=== PATIENT | male | born 1955 | race Caucasian/White ===

== ENCOUNTER 2017-03-17 19:17 | Emergency (ER) | payer BC ==
[~2017-03-17] VITALS: Ht 177.8 cm; Wt 98.4 kg
[~2017-03-17 19:17] MED LIST: ATIVAN1 MG PO; BACTRIM DS 8001 TA1 PO; HYDROCODONE BIT1 T11 PO; LISINOPRIL10 MG PO; MOTRIN800 MG PO; PERCOCET 325 MG1 TA2 PO; PROZAC20 MG PO; RESTORIL30 MG PO
[2017-03-17 19:57] LABS: BASO % 0.4 % (0.0-1.0); EOS # 0.4 10*3/uL (0.0-0.4); HEMATOCRIT 41.1 % (42.0-52.0); HEMOGLOBIN 14.4 g/dl (14.0-18.0); LYMPH # 3.2 10*3/uL (1.3-4.4); LYMPH % 31.4 % (27.0-41.0); MEAN CELL VOLUME 93.2 fl (80.0-94.0); MEAN CORPUSCULAR HGB 32.7 pg (27.0-31.0); MEAN PLATELET VOLUME 9.5 fl (9.6-12.3); MONO # 0.6 10*3/uL (0.1-1.0); NEUT # 5.9 10*3/uL (2.3-7.9); NEUT % 57.8 % (47.0-73.0); PLATELET COUNT AUTOMATED 201 10*3/uL (130-400); RED BLOOD COUNT 4.41 10*6/uL (4.50-5.90); RED CELL DISTRI WIDTH 12.4 % (0-14.5); WHITE BLOOD COUNT 10.2 10*3/uL (4.8-10.8)
[2017-03-17 20:13] LABS: ALBUMIN 4.3 gm/dl (3.1-4.5); ALKALINE PHOSPHATASE 58 U/L (45-117); BUN 15 mg/dl (7-24); CHLORIDE 106 mmol/L (98-107); CREATININE 0.95 mg/dL (0.70-1.30); POTASSIUM 3.8 mmol/L (3.5-5.1); SGOT/AST 23 IU/L (3-35); SGPT/ALT 38 U/L (12-78); SODIUM 140 mmol/L (136-145); TOTAL PROTEIN 7.5 gm/dL (6.4-8.2)
[2017-03-17] MEDS ORDERED: CYCLOBENZAPRINE5 M3 PO (21:49)
== END 2017-03-17 21:49 | disposition home or self-care (01) ==
LOC: ED 19:17
PROVIDERS: Nurse Practitioner Family
DX: S76.912A Strain of unspecified muscles, fascia and tendons at thigh level, left thigh, initial encounter (principal); Z88.8 Allergy status to other drugs, medicaments and biological substances; X50.9XXA Other and unspecified overexertion or strenuous movements or postures, initial encounter; Y93.89 Activity, other specified; Y92.9 Unspecified place or not applicable; Y99.9 Unspecified external cause status

== ENCOUNTER 2018-12-26 21:33 | Inpatient (IN) | payer OTHER ==
[~2018-12-26] VITALS: Ht 177.8 cm; Wt 93.6 kg
--- NOTE | ~2018-12-26 | EKG ---
[place], [place] ELECTROCARDIOGRAM REPORT NAME: JANETH CARABALLO UNIT #: [id number] ROOM: 506 DOCTOR: EPIPHANY DRAFT REPORT BIRTHDATE: [birth year] [facility] Test Date: 2018-12-27 Test Time: 01:18:09 Pat Name: JANETH CARABALLO Department: Room: 506 1 Gender: M Race Board Attendant: : 1955 Requested By: DAMION ABBASI Order Number: [id number] Reading MD: Duyen Kruse MD Measurements Intervals [place] Rate: 62 P: 3 PA: 129 QRS: 15 QRSD: 98 T: 34 QT: 435 QTc: 442 Interpretive Statements Sinus rhythm Electronically Signed On 12-27-2018 14:32:13 PDT by Duyen Kruse MD CM:EKGRPT:ELECTROCARDIOGRAM REPORT [id number] DAIMON ARGUELLO DRAFT REPORT DAMION ABBASI DO
--- NOTE | ~2018-12-26 | EKG ---
[place], [place] ELECTROCARDIOGRAM REPORT NAME: JANETH CARABALLO UNIT #: [id number] ROOM: 506 DOCTOR: CHETNA DRAFT REPORT BIRTHDATE: [birth year] [facility] Test Date: 2018-12-27 Test Time: 02:57:11 Pat Name: JANETH CARABALLO Department: Room: 506 1 Gender: M Retail Team Leader: Heidi Lee : 1955 Requested By: DAMION ABBASI Order Number: [id number] Reading MD: Duyen Kruse MD Measurements Intervals [place] Rate: 58 P: 40 VT: 151 QRS: 30 QRSD: 90 T: 27 QT: 454 QTc: 446 Interpretive Statements Sinus rhythm Atrial premature complex Electronically Signed On 12-27-2018 14:32:31 PDT by Duyen Kruse MD CM:EKGRPT:ELECTROCARDIOGRAM REPORT [id number] DAMION ARGUELLO DRAFT REPORT DAMION ABBASI DO
--- NOTE | ~2018-12-26 | EKG ---
[place], [place] ELECTROCARDIOGRAM REPORT NAME: JANETH CARABALLO UNIT #: [id number] ROOM: 506 DOCTOR: EPIPHNAE DRAFT REPORT BIRTHDATE: [birth year] [facility] Test Date: 2018-12-27 Test Time: 07:09:05 Pat Name: JANETH CARABALLO Department: Room: 506 1 Gender: M Titrator: : 1955 Requested By: DAMION ABBASI Order Number: [id number] Reading MD: Duyen Kruse MD Measurements Intervals [place] Rate: 65 P: 22 SD: 153 QRS: 22 QRSD: 98 T: 24 QT: 437 QTc: 455 Interpretive Statements Sinus rhythm Electronically Signed On 12-27-2018 14:32:43 PDT by Duyen Kruse MD CM:EKGRPT:ELECTROCARDIOGRAM REPORT [id number] DAMION ARGUELLO DRAFT REPORT DAMION ABBASI DO
[~2018-12-26 21:33] MED LIST changes: +CYCLOBENZAPRINE5 M3 PO
[2018-12-26] MEDS ORDERED: ZESTORETIC 10-1 EACH PO (21:37)
[2018-12-26] MEDS ORDERED: ATORVASTATIN CA20 M1 PO (21:37)
[2018-12-26 21:38] VITALS: BP 137/78
[2018-12-26 21:57] LABS: BASO % 0.2 % (0.0-1.0); EOS # 0.3 10*3/uL (0.0-0.4); HEMOGLOBIN 14.6 g/dl (14.0-18.0); LYMPH # 2.6 10*3/uL (1.3-4.4); MEAN CELL VOLUME 98.9 fl (80.0-94.0); MEAN CORPUSCULAR HGB 33.6 pg (27.0-31.0); MEAN PLATELET VOLUME 9.5 fl (9.6-12.3); MONO # 0.7 10*3/uL (0.1-1.0); MONO % 5.4 % (3.0-9.0); NEUT # 9.4 10*3/uL (2.3-7.9); PLATELET COUNT AUTOMATED 233 10*3/uL (130-400); RED BLOOD COUNT 4.35 10*6/uL (4.50-5.90); RED CELL DISTRI WIDTH 12.7 % (0-14.5)
[2018-12-26 22:07] LABS: ACT PARTIAL THROMBO TIME 24.2 SECONDS (20.0-32.1); INTERNATIONAL NORM RATIO 0.9 (2.0-3.5)
[2018-12-26 22:19] LABS: BILIRUBIN NEGATIVE (NEGATIVE); BLOOD NEGATIVE (NEGATIVE); CLARITY CLEAR (CLEAR); COLOR YELLOW (YELLOW); GLUCOSE 3+ (NEGATIVE); KETONE NEGATIVE (NEGATIVE); LEUKO ESTERASE NEGATIVE (NEGATIVE); NITRITE NEGATIVE (NEGATIVE); UROBILINOGEN 0.2 E.U./dl (0.2-1.0)
[2018-12-26 22:20] LABS: BUN 18 mg/dl (7-24); CREATININE 1.08 mg/dL (0.70-1.30)
[2018-12-26 22:21] LABS: ALBUMIN 3.9 gm/dl (3.1-4.5); ALKALINE PHOSPHATASE 61 U/L (45-117); CHLORIDE 102 mmol/L (98-107); LIPASE 107 U/L (73-393); POTASSIUM 3.6 mmol/L (3.5-5.1); SGOT/AST 21 IU/L (3-35); SGPT/ALT 36 U/L (12-78); SODIUM 132 mmol/L (136-145); TOTAL PROTEIN 7.7 gm/dL (6.4-8.2)
[2018-12-26 22:40] LABS: RBC 0-2 rbc/hpf (0-2); WBC 0-2 wbc/hpf (0-5)
--- NOTE | 2018-12-26 23:50 | NUR ---
PATIENT RESTING IN BED, GABRADLEYDING NOTED TO ABDOMEN. PER PATIENT PAIN HURTS WHEN HE TRIES TO MOVE AROUND AND THAT IS WHAT HE WAS JUST DOING. PROVIDED PATIENT WITH URINAL AT THIS TIME. RESPIRATIONS EASY, NON-LABORED ON ROOM AIR. RN WILL CONTINUE TO MONITOR.
[2018-12-27 00:17] VITALS: BP 118/70
[2018-12-27 01:38] VITALS: BP 138/88
--- NOTE | 2018-12-27 01:38 | NUR ---
Time: 137 A 63 year old M admitted to under services of JACOB GARRISON DO. Pt. arrived via wheel chair from ER. Chief complaint: LOWER ABD PAIN, SUDDEN AND STABBING THAT STARTED 12/26 0800. CHRISTAL N/V/Nabeel. ELISSA PEDRO
--- NOTE | 2018-12-27 02:00 | NUR ---
HOME MEDS VERIFIED WITH PATIENT AND UP TO DATE IN MED REC
--- NOTE | 2018-12-27 02:27 | NUR ---
MEDICATED WITH MORPHINE IV PER PRN ORDER FOR COMPLAINTS OF LOWER ABD PAIN RATING AN 8. INFORMED OF NPO STATUS. IV FLUIDS INFUSING PER ORDER. CALL LIGHT WITHIN REACH. WILL MONITOR
--- NOTE | 2018-12-27 04:00 | NUR ---
EARLIER MORPHINE APPEARS EFFECTIVE. RESTING WITH EYES CLOSED. RESPIRATIONS EASY. IV FLUIDS MAINTAINED. CALL LIGHT WITHIN REACH.
[2018-12-27 04:11] LABS: BASO % 0.3 % (0.0-1.0); EOS # 0.2 10*3/uL (0.0-0.4); EOS % 1.4 % (1.0-4.0); HEMATOCRIT 39.2 % (42.0-52.0); HEMOGLOBIN 12.9 g/dl (14.0-18.0); LYMPH # 2.6 10*3/uL (1.3-4.4); LYMPH % 22.6 % (27.0-41.0); MEAN CELL VOLUME 100.5 fl (80.0-94.0); MEAN CORPUSCULAR HGB 33.1 pg (27.0-31.0); MEAN CORPUSCULAR HGB CONC 32.9 g/dl (33.0-37.0); MONO # 0.8 10*3/uL (0.1-1.0); MONO % 7.3 % (3.0-9.0); NEUT # 7.7 10*3/uL (2.3-7.9); PLATELET COUNT AUTOMATED 176 10*3/uL (130-400); RED CELL DISTRI WIDTH 12.8 % (0-14.5); WHITE BLOOD COUNT 11.3 10*3/uL (4.8-10.8)
[2018-12-27 04:24] LABS: ACT PARTIAL THROMBO TIME 26.2 SECONDS (20.0-32.1)
[2018-12-27 04:29] LABS: ALBUMIN 3.2 gm/dl (3.1-4.5); ALKALINE PHOSPHATASE 48 U/L (45-117); BUN 15 mg/dl (7-24); CHLORIDE 109 mmol/L (98-107); CHOLESTEROL 112 mg/dL (<200); HDL CHOLESTEROL 52 mg/dl (40-60); LDL CHOLESTEROL 46 mg/dL (9-159); PHOSPHOROUS 3.1 mg/dL (2.5-4.9); POTASSIUM 3.8 mmol/L (3.5-5.1); SGOT/AST 13 IU/L (3-35); SGPT/ALT 24 U/L (12-78); SODIUM 138 mmol/L (136-145); TOTAL PROTEIN 6.5 gm/dL (6.4-8.2); TRIGLYCERIDES 71 mg/dl (<150); VLDL CHOLESTEROL 14 mg/dL (6-40)
[2018-12-27 04:30] LABS: FREE T4 0.75 ng/dl (0.76-1.46)
[2018-12-27 04:35] LABS: THYROID STIM HORMONE (HS) 0.412 uIU/ml (0.358-4.75)
--- NOTE | 2018-12-27 05:30 | NUR ---
dr melgoza aware home meds up to date
--- NOTE | 2018-12-27 06:24 | NUR ---
MEDICATED WITH MORPHINE IV PER PRN ORDER FOR COMPLAINTS OF LOWER ABD PAIN RATING A 10. IV FLUIDS MAINTAINED. CALL LIGHT WITHIN REACH. NPO STATUS MAINTAINED
--- NOTE | 2018-12-27 06:50 | NUR ---
dr escudero contacted and informed of consult. per dr escudero, already aware of consult
[2018-12-27 06:59] LABS: VITAMIN D, 25-HYDROXY 39.8 ng/mL (30-100)
[2018-12-27 08:00] VITALS: BP 124/76
--- NOTE | 2018-12-27 08:29 | NUR ---
PT RESTING IN BED. NO DISTRESS NOTED. SEE SHIFT ASSESSMENT. WILL MONITOR
--- NOTE | 2018-12-27 10:00 | NUR ---
dr hale in to see pt
[2018-12-27 12:00] VITALS: BP 145/84
--- NOTE | 2018-12-27 12:37 | NUR ---
PT REQUESTED AND GIVEN MORPHINE FOR C/O ABD PAIN PT RATES PAIN 8 WILL MONITOR
--- NOTE | 2018-12-27 13:30 | NUR ---
morphine helped per pt will monitor
[2018-12-27 16:00] VITALS: BP 127/84
--- NOTE | 2018-12-27 17:11 | NUR ---
PT REQUESTED AND GIVEN MORPHINE FOR C/O ABD PAIN. PT RATES PAIN 7/10 WILL MONITOR
--- NOTE | 2018-12-27 18:42 | NUR ---
MS HELPED PER PT WILL MONITOR
--- NOTE | 2018-12-27 19:49 | NUR ---
24 HR chart check completed.
[2018-12-27 20:00] VITALS: BP 144/77
--- NOTE | 2018-12-27 20:00 | NUR ---
RESTING IN BED WATCHING TV. NO DISTRESS NOTED. RESPIRATIONS EASY. LUNGS DIMINISHED, CLEAR. PULSE OX 94% RA. ABD SOFT WITH HYPO BS, CONTINUES TO C/O LOWER ABD PAIN/TENDERNESS. IV FLUIDS INFUSING PER ORDER. CALL LIGHT WITHIN RECAH.
--- NOTE | 2018-12-27 21:43 | NUR ---
MEDICATED WITH MORPHINE IV PER PRN ORDER FOR COMPLAINTS OF LOWER ABD PAIN/TENDERNESS RATING A 6. CALL LIGHT WITHIN REACH. WILL MONITOR FOR EFFECTIVENESS
--- NOTE | 2018-12-27 23:00 | NUR ---
DR MONZON CONTACTED AND INFORMED OF +BC
[2018-12-28] VITALS: BP 142/80; BP 145/88
--- NOTE | 2018-12-28 | NUR ---
AWAKE BUT RESTING WITH EYES CLOSED. RESPIRATIONS EASY. VSS. STATES EARLIER PAIN MEDS, HELPING. IV FLUIDS MAINTAINED. CALL LIGHT WITHIN REACH. NO FURTHER VOICED COMPLAINTS.
--- NOTE | 2018-12-28 04:38 | NUR ---
REQUESTED AND RECEIVED MORPHINE IV PER PRN ORDER FOR COMPLAINTS OF LOWER ABD PAIN RATING A 9. CALL LIGHT WITHIN REACH. WILL MONITOR FOR EFFECTIVENESS
--- NOTE | 2018-12-28 06:00 | NUR ---
EARLIER MEDS APPEAR EFFECTIVE. RESTING WITH EYES CLOSED. RESPIRATIONS EASY. CALL LIGHT WITHIN REACH
[2018-12-28 06:16] LABS: BASO % 0.3 % (0.0-1.0); EOS # 0.2 10*3/uL (0.0-0.4); EOS % 2.3 % (1.0-4.0); HEMATOCRIT 38.5 % (42.0-52.0); HEMOGLOBIN 12.6 g/dl (14.0-18.0); LYMPH # 2.2 10*3/uL (1.3-4.4); LYMPH % 22.9 % (27.0-41.0); MEAN CELL VOLUME 100.8 fl (80.0-94.0); MEAN CORPUSCULAR HGB CONC 32.7 g/dl (33.0-37.0); MEAN PLATELET VOLUME 9.7 fl (9.6-12.3); MONO # 0.5 10*3/uL (0.1-1.0); MONO % 5.3 % (3.0-9.0); NEUT # 6.6 10*3/uL (2.3-7.9); NEUT % 68.8 % (47.0-73.0); PLATELET COUNT AUTOMATED 174 10*3/uL (130-400); RED BLOOD COUNT 3.82 10*6/uL (4.50-5.90); RED CELL DISTRI WIDTH 12.5 % (0-14.5); WHITE BLOOD COUNT 9.6 10*3/uL (4.8-10.8)
[2018-12-28 06:36] LABS: ALBUMIN 3.1 gm/dl (3.1-4.5); ALKALINE PHOSPHATASE 48 U/L (45-117); BUN 11 mg/dl (7-24); CHLORIDE 110 mmol/L (98-107); CREATININE 0.78 mg/dL (0.70-1.30); POTASSIUM 3.7 mmol/L (3.5-5.1); SGOT/AST 11 IU/L (3-35); SGPT/ALT 22 U/L (12-78); SODIUM 138 mmol/L (136-145); TOTAL PROTEIN 6.6 gm/dL (6.4-8.2)
[2018-12-28 07:36] VITALS: BP 142/90
--- NOTE | 2018-12-28 09:30 | NUR ---
DR YEPEZ CALLED AND NOTIFIED OF BP FROM THIS AM. AND NPO STATUS R/T MEDS. MEDS OK WITH SIPS OF WATER PER DR YEPEZ.
[2018-12-28 09:48] VITALS: BP 142/92
[2018-12-28 12:08] VITALS: BP 130/80
--- NOTE | 2018-12-28 14:25 | NUR ---
Machine Maintenance Repairer in to talk to patient. Patient states lives at HOME with ALONE. There are FEW steps in the home. Physician: DANIEL Pharmacy: [facility] Home health services: NONE Patient's level of ADLs: INDEPENDENT Patient has working utilities: YES DME: NONE Follow-up physician's appointment after d/c: WILL BE MADE BY HOSPITALIST NURSE DIRECTOR ON DISCHARGE Does patient want to access PORTAL?: NO Discharge plan PT LIVES AT HOME ALONE AND IS INDEPENDENT IN HIS CARE. DENIES THAT HE WILL HAVE NEEDS ON DISCHARGE. CAN BE DISCHARGED WHEN MEDICALLY STABLE. WILL CONTINUE TO FOLLOW. WILL HAVE A RIDE HOME. LESTER GARCIA
[2018-12-28 16:00] VITALS: BP 135/83
[2018-12-28 20:00] VITALS: BP 146/84
[2018-12-29] VITALS: BP 126/66
--- NOTE | 2018-12-29 02:28 | NUR ---
PT ASLEEP IN BED, EASILY AROUSABLE. DENIES ANY NEEDS AT THIS TIME. WILL MONITOR. CALL LIGHT IN REACH.
[2018-12-29 07:41] VITALS: BP 138/90
[2018-12-29 08:04] LABS: BASO % 0.4 % (0.0-1.0); EOS # 0.3 10*3/uL (0.0-0.4); EOS % 3.3 % (1.0-4.0); HEMATOCRIT 40.1 % (42.0-52.0); HEMOGLOBIN 13.3 g/dl (14.0-18.0); LYMPH # 2.1 10*3/uL (1.3-4.4); LYMPH % 27.5 % (27.0-41.0); MEAN CORPUSCULAR HGB 33.2 pg (27.0-31.0); MEAN CORPUSCULAR HGB CONC 33.2 g/dl (33.0-37.0); MEAN PLATELET VOLUME 9.7 fl (9.6-12.3); MONO # 0.4 10*3/uL (0.1-1.0); MONO % 5.3 % (3.0-9.0); NEUT # 4.8 10*3/uL (2.3-7.9); NEUT % 63.2 % (47.0-73.0); PLATELET COUNT AUTOMATED 194 10*3/uL (130-400); RED BLOOD COUNT 4.01 10*6/uL (4.50-5.90); RED CELL DISTRI WIDTH 12.3 % (0-14.5); WHITE BLOOD COUNT 7.6 10*3/uL (4.8-10.8)
[2018-12-29 08:22] LABS: ALBUMIN 3.2 gm/dl (3.1-4.5); ALKALINE PHOSPHATASE 49 U/L (45-117); BUN 10 mg/dl (7-24); CHLORIDE 109 mmol/L (98-107); CREATININE 0.87 mg/dL (0.70-1.30); POTASSIUM 3.9 mmol/L (3.5-5.1); SGOT/AST 13 IU/L (3-35); SGPT/ALT 22 U/L (12-78); SODIUM 142 mmol/L (136-145)
--- NOTE | 2018-12-29 08:47 | NUR ---
PT RESTING IN BED. NO DISTRESS NOTED. WILL MONITOR
[2018-12-29 09:14] VITALS: BP 132/80
--- NOTE | 2018-12-29 11:52 | NUR ---
PT REQUESTED AMD GIVEN MORPHINE FOR C/O ABD PAIN . PT RATES PAIN 5/10 WILL MONITOR
[2018-12-29 11:57] VITALS: BP 130/80
--- NOTE | 2018-12-29 13:20 | NUR ---
PT DENIES NEEDS ON DISCHARGE. CAN BE DISCHARGED TO HOME WHEN MEDICALLY STABLE. WILL CONTINUE TO FOLLOW.
--- NOTE | 2018-12-29 14:00 | NUR ---
MORPHINE IS EFFECTIVE. WILL MONITOR
[2018-12-29 16:03] VITALS: BP 156/88
--- NOTE | 2018-12-29 19:56 | NUR ---
PATIENT RESTING IN BED AT THIS TIME. NO C/O ABDOMINAL PAIN. TOLERATING CLEAR LIQUID DIET WELL. DENIES N/V. REPORTED HAVING DIARRHEA. NO OTHER NEEDS AT THIS TIME. CALL LIGHT WITHIN REACH. BED IN LOWEST POSITION.
[2018-12-29 20:00] VITALS: BP 138/95
--- NOTE | 2018-12-29 20:09 | NUR ---
PATIENT MEDICATED WITH RESTORIL AT THIS TIME PER REQUEST.
[2018-12-30] VITALS: BP 126/70
--- NOTE | 2018-12-30 00:24 | NUR ---
PT DENIES ANY NEEDS AT CURRENT TIME. WILL MONITOR. CALL LIGHT IN REACH.
--- NOTE | 2018-12-30 03:35 | NUR ---
PT ASLEEP IN BED, EASILY AROUSABLE. NO S/S OF DISTRESS NOTED. IV ABX INFUSING. WILL MONITOR. CALL LIGHT IN REACH.
--- NOTE | 2018-12-30 07:05 | NUR ---
NOTIFIED OF + BLOOD CULTURES FROM 12/26 [facility]-HOMINUS HOMINUS. NO NEW ORDERS.
[2018-12-30 08:00] VITALS: BP 134/56
--- NOTE | 2018-12-30 08:12 | NUR ---
DR YEPEZ CALLED FOR ADVANCEMENT ON PATIENT'S DIET. PATIENT TOLERATED CLEAR LIQUIDS YESTERDA. OK TO ADVANCETO SOFT DIET AT THIS TIME.
[2018-12-30 08:42] VITALS: BP 148/80
--- NOTE | 2018-12-30 10:08 | NUR ---
PATIENT REQUESTING MEDICATION FOR ANXIETY. ATIVAN ADMINISTERED PRESCRIBED. WILL MONITOR FOR EFFECTIVENESS.
--- NOTE | 2018-12-30 10:15 | NUR ---
PATIENT TOILETED TO BEDSIDE COMMODE. HAD SMALL HARD BROWN BOWEL MOVEMENT, NO BLOOD OBSERVED.
[2018-12-30] MEDS ORDERED: FLAGYL500 MG PO (11:25)
[2018-12-30] MEDS ORDERED: CIPRO500 MG PO (11:25)
[2018-12-30] MEDS ORDERED: B12,B-12,B 12500 MC1 PO (11:25)
[2018-12-30 12:00] VITALS: BP 145/80
--- NOTE | 2018-12-30 12:20 | NUR ---
DISCHARGE PAPERS WENT OVER, PATIENT UNDERSTANDS, AND IV REMOVED FOR DISCHARGE.
--- NOTE | 2018-12-30 13:02 | NUR ---
Discharge instructions reviewed with patient/family. Patient receptive and verbalizes understanding. Follow-up care arranged. Written instructions given to patient/family. PATIENT DISCHARGED HOME VIA WHEELCHAIR WITH SISTER. CHRISTOPHER GARCIA
--- NOTE | 2018-12-30 13:36 | NUR ---
PT CONTINUES TO DENY NEEDS ON DISCHARGE. WILL CONTINUE TO FOLLOW.
== END 2018-12-30 13:02 | disposition home or self-care (01) | DRG 872 ==
LOC: ED 21:33 → 5E 12-27 00:40 → EDHOLD 12-27 00:40 → 5E 12-27 00:52
PROVIDERS: Hospitalist; Internal Medicine; Physician Assistant; ADMIT Emergency Medicine
DX: A41.89 Other specified sepsis (principal); K57.32 Diverticulitis of large intestine without perforation or abscess without bleeding; I10 Essential (primary) hypertension; F32.9 Major depressive disorder, single episode, unspecified; F41.9 Anxiety disorder, unspecified; E87.8 Other disorders of electrolyte and fluid balance, not elsewhere classified; E83.51 Hypocalcemia; D53.9 Nutritional anemia, unspecified; E53.8 Deficiency of other specified B group vitamins; Z82.49 Family history of ischemic heart disease and other diseases of the circulatory system; Z80.0 Family history of malignant neoplasm of digestive organs; Z88.8 Allergy status to other drugs, medicaments and biological substances; Z79.1 Long term (current) use of non-steroidal anti-inflammatories (NSAID); Z79.899 Other long term (current) drug therapy

== ENCOUNTER 2019-03-12 16:13 | Emergency (ER) | payer OTHER ==
[~2019-03-12] VITALS: Ht 177.8 cm; Wt 93.0 kg
--- NOTE | ~2019-03-12 | EKG ---
[place], [place] ELECTROCARDIOGRAM REPORT NAME: JANETH CARABALLO UNIT #: [id number] ROOM: DOCTOR: EPIPHANY DRAFT REPORT BIRTHDATE: [birth year] [facility] Test Date: 2019-03-12 Test Time: 16:30:29 Pat Name: JANETH CARABALLO Department: er Room: Gender: Senior Producer: : 1955 Requested By: ERIN VAZQUEZ Order Number: [id number] Reading MD: Wellington Murillo MD Measurements Intervals [place] Rate: 69 P: 21 ME: 133 QRS: 50 QRSD: 92 T: 57 QT: 432 QTc: 463 Interpretive Statements Sinus rhythm No significant changes Electronically Signed On 03-13-2019 7:51:57 PDT by Wellington Murillo MD CM:EKGRPT:ELECTROCARDIOGRAM REPORT [id number] ERIN BASILIO DRAFT REPORT ERIN VAZQUEZ M.D.
[~2019-03-12 16:13] MED LIST changes: +ATORVASTATIN CA20 M1 PO; +B12,B-12,B 12500 MC1 PO; +CIPRO500 MG PO; +FLAGYL500 MG PO; +ZESTORETIC 10-1 EACH PO
[2019-03-12 17:04] LABS: BASO % 0.1 % (0.0-1.0); EOS % 0.4 % (1.0-4.0); HEMATOCRIT 42.5 % (42.0-52.0); HEMOGLOBIN 14.6 g/dl (14.0-18.0); LYMPH # 2.1 10*3/uL (1.3-4.4); LYMPH % 22.3 % (27.0-41.0); MEAN CELL VOLUME 95.9 fl (80.0-94.0); MEAN CORPUSCULAR HGB CONC 34.4 g/dl (33.0-37.0); MEAN PLATELET VOLUME 9.2 fl (9.6-12.3); MONO # 0.5 10*3/uL (0.1-1.0); MONO % 5.3 % (3.0-9.0); NEUT # 6.8 10*3/uL (2.3-7.9); NEUT % 71.6 % (47.0-73.0); PLATELET COUNT AUTOMATED 216 10*3/uL (130-400); RED BLOOD COUNT 4.43 10*6/uL (4.50-5.90); RED CELL DISTRI WIDTH 12.6 % (0-14.5); WHITE BLOOD COUNT 9.5 10*3/uL (4.8-10.8)
[2019-03-12 17:19] LABS: ALBUMIN 3.9 gm/dl (3.1-4.5); ALKALINE PHOSPHATASE 52 U/L (45-117); BUN 13 mg/dl (7-24); CHLORIDE 101 mmol/L (98-107); CREATININE 0.87 mg/dL (0.70-1.30); POTASSIUM 3.7 mmol/L (3.5-5.1); SGOT/AST 21 IU/L (3-35); SGPT/ALT 34 U/L (12-78); SODIUM 133 mmol/L (136-145); TOTAL PROTEIN 7.5 gm/dL (6.4-8.2)
[2019-03-12 18:31] LABS: BILIRUBIN NEGATIVE (NEGATIVE); BLOOD 3+ (NEGATIVE); CLARITY CLEAR (CLEAR); COLOR YELLOW (YELLOW); GLUCOSE TRACE (NEGATIVE); KETONE TRACE (NEGATIVE); LEUKO ESTERASE NEGATIVE (NEGATIVE); NITRITE NEGATIVE (NEGATIVE); SPECIFIC GRAVITY 1.015 (1.005-1.030); UROBILINOGEN 0.2 E.U./dl (0.2-1.0)
[2019-03-12 18:37] LABS: BACTERIA TRACE; RBC TNTC rbc/hpf (0-2)
== END 2019-03-12 23:27 | disposition short-term general hospital (02) ==
LOC: ED 16:13
PROVIDERS: Emergency Medicine
DX: S32.008A Other fracture of unspecified lumbar vertebra, initial encounter for closed fracture (principal); R31.9 Hematuria, unspecified; E78.00 Pure hypercholesterolemia, unspecified; I10 Essential (primary) hypertension; Z98.890 Other specified postprocedural states; Z87.891 Personal history of nicotine dependence; Z88.6 Allergy status to analgesic agent; Z79.899 Other long term (current) drug therapy; X58.XXXA Exposure to other specified factors, initial encounter; Y93.89 Activity, other specified; Y92.89 Other specified places as the place of occurrence of the external cause; Y99.9 Unspecified external cause status

== ENCOUNTER → 2022-07-24 | Outpatient (CLI) | payer MEDICARE, MEDICAID ==
[2022-07-24 16:38] LABS: BILIRUBIN Negative (Negative); BLOOD Negative (Negative); CLARITY Clear (Clear); COLOR Yellow (Yellow); GLUCOSE 3+ (Negative); KETONE 1+ (Negative); LEUKO ESTERASE Negative (Negative); NITRITE Negative (Negative); SPECIFIC GRAVITY >= 1.030 (1.001-1.030); UROBILINOGEN 0.2 E.U./dl (0.0-1.0)
[2022-07-24 17:01] LABS: ALKALINE PHOSPHATASE 61 U/L (46-116); BUN 13 mg/dl (9-23); CHLORIDE 102 mmol/L (98-107); CHOLESTEROL 222 mg/dL (<200); POTASSIUM 4.1 mmol/L (3.4-5.1); SGPT/ALT 28 U/L (10-49); THYROID STIM HORMONE (HS) 1.154 uIU/ml (0.550-4.780); TOTAL PROTEIN 7.8 gm/dL (6.0-8.0)
[2022-07-24 17:04] LABS: TRIGLYCERIDES 1154 mg/dl (<150)
[2022-07-24 17:08] LABS: MUCOUS 1+
== END | disposition home or self-care (01) ==
LOC: LAB 16:16
PROVIDERS: ATTEND Family Medicine
DX: I10 Essential (primary) hypertension (principal); E78.2 Mixed hyperlipidemia; R73.9 Hyperglycemia, unspecified

== ENCOUNTER → 2022-11-04 | Outpatient (CLI) | payer BC, MEDICAID, MEDICARE ==
[2022-11-04 12:34] LABS: BUN 8 mg/dl (9-23); CHLORIDE 98 mmol/L (98-107); CHOLESTEROL 162 mg/dL (<200); LDL CHOLESTEROL 77 mg/dL (9-159); TRIGLYCERIDES 189 mg/dl (<150)
== END | disposition home or self-care (01) ==
LOC: LAB 11-03 01:04
PROVIDERS: ATTEND Family Medicine
DX: E11.9 Type 2 diabetes mellitus without complications (principal)

== ENCOUNTER → 2023-04-03 | Outpatient (CLI) | payer OTHER, MEDICAID ==
[2023-04-03 10:48] LABS: BUN 13 mg/dl (9-23); CHLORIDE 107 mmol/L (98-107); CHOLESTEROL 157 mg/dL (<200); LDL CHOLESTEROL 84 mg/dL (9-159); POTASSIUM 4.2 mmol/L (3.4-5.1); TRIGLYCERIDES 171 mg/dl (<150)
== END | disposition home or self-care (01) ==
LOC: LAB 09:20
PROVIDERS: ATTEND Family Medicine
DX: E11.65 Type 2 diabetes mellitus with hyperglycemia (principal); E78.2 Mixed hyperlipidemia

== ENCOUNTER → 2023-08-06 | Outpatient (CLI) | payer OTHER | END | disposition home or self-care (01) | LOC: US 09:40 | PROVIDERS: ATTEND Family Medicine | DX: Z13.6 Encounter for screening for cardiovascular disorders (principal); Z12.89 Encounter for screening for malignant neoplasm of other sites; J44.9 Chronic obstructive pulmonary disease, unspecified; R91.1 Solitary pulmonary nodule; I71.21 Aneurysm of the ascending aorta, without rupture; I70.0 Atherosclerosis of aorta; I10 Essential (primary) hypertension; E11.9 Type 2 diabetes mellitus without complications; Z87.891 Personal history of nicotine dependence ==

== ENCOUNTER → 2023-10-22 | Outpatient (CLI) | payer OTHER ==
[2023-10-22 13:34] LABS: ALKALINE PHOSPHATASE 48 U/L (46-116); BUN 16 mg/dl (9-23); CHLORIDE 100 mmol/L (98-107); CHOLESTEROL 139 mg/dL (<200); LDL CHOLESTEROL 65 mg/dL (9-159); POTASSIUM 3.9 mmol/L (3.4-5.1); SGPT/ALT 78 U/L (5-49); TOTAL PROTEIN 7.6 gm/dL (6.0-8.0); TRIGLYCERIDES 182 mg/dl (<150)
== END | disposition home or self-care (01) ==
LOC: LAB 12:30
PROVIDERS: ATTEND Family Medicine
DX: I10 Essential (primary) hypertension (principal); E11.9 Type 2 diabetes mellitus without complications; E78.2 Mixed hyperlipidemia

== ENCOUNTER → 2024-04-12 | Outpatient (CLI) | payer OTHER ==
[~2024-04-12] MED LIST changes: +AMBIEN10 M1 PO; +DOXEPIN25 MG PO; +METFORMIN HYD1000 MG PO; +Regadenoson 0.4 MG/5 ML SYR IV ONE; +TOPCARE OMEPRAZ20 MG PO; +Technetium Tc 99M Tetrofosmi 0.23 MG KIT IJ SCH
== END | disposition home or self-care (01) ==
LOC: CARD 01:30
PROVIDERS: ATTEND Internal Medicine Cardiovascular Disease
DX: I10 Essential (primary) hypertension (principal); I72.9 Aneurysm of unspecified site; I20.89 Other forms of angina pectoris

== ENCOUNTER → 2024-08-16 | Outpatient (CLI) | payer MEDICARE ==
[~2024-08-16] MED LIST changes: -Regadenoson 0.4 MG/5 ML SYR IV ONE; -Technetium Tc 99M Tetrofosmi 0.23 MG KIT IJ SCH
[2024-08-16 17:10] LABS: BASO % 0.3 % (0.0-1.0); EOS # 0.2 10*3/uL (0.0-0.4); EOS % 2.1 % (1.0-4.0); HEMATOCRIT 42.3 % (42.0-52.0); MEAN CELL VOLUME 99.5 fl (80.0-94.0); MEAN CORPUSCULAR HGB 33.9 pg (27.0-31.0); MONO # 0.6 10*3/uL (0.1-1.0); MONO % 9.1 % (3.0-9.0); NEUT # 3.4 10*3/uL (2.3-7.9); NEUT % 47.4 % (47.0-73.0); PLATELET COUNT AUTOMATED 210 10*3/uL (130-400); RED BLOOD COUNT 4.25 10*6/uL (4.50-5.90); RED CELL DISTRI WIDTH 11.9 % (0-14.5); WHITE BLOOD COUNT 7.1 10*3/uL (4.8-10.8)
[2024-08-16 17:38] LABS: ALKALINE PHOSPHATASE 31 U/L (46-116); BUN 22 mg/dl (9-23); CHLORIDE 101 mmol/L (98-107); CHOLESTEROL 135 mg/dL (<200); LDL CHOLESTEROL 64 mg/dL (9-159); POTASSIUM 3.2 mmol/L (3.4-5.1); SGPT/ALT 48 U/L (5-49); TOTAL PROTEIN 7.3 gm/dL (6.0-8.0); TRIGLYCERIDES 149 mg/dl (<150)
== END | disposition home or self-care (01) ==
LOC: LAB 16:55
PROVIDERS: ATTEND Nurse Practitioner Family
DX: Z12.5 Encounter for screening for malignant neoplasm of prostate (principal); I10 Essential (primary) hypertension; E11.9 Type 2 diabetes mellitus without complications; E78.2 Mixed hyperlipidemia; Z13.29 Encounter for screening for other suspected endocrine disorder; K21.9 Gastro-esophageal reflux disease without esophagitis; Z76.89 Persons encountering health services in other specified circumstances

== ENCOUNTER → 2024-09-27 | Outpatient (CLI) | payer MEDICARE ==
[2024-09-27 17:06] LABS: BUN 12 mg/dl (9-23); CHLORIDE 96 mmol/L (98-107); POTASSIUM 4.3 mmol/L (3.4-5.1)
== END | disposition home or self-care (01) ==
LOC: LAB 14:36
PROVIDERS: ATTEND Nurse Practitioner Family
DX: E87.6 Hypokalemia (principal)

== ENCOUNTER → 2024-12-23 | Outpatient (CLI) | payer MEDICARE ==
[2024-12-23 17:57] LABS: BUN 28 mg/dl (9-23); SGPT/ALT 25 U/L (5-49)
== END ==
LOC: LAB 17:15
PROVIDERS: ATTEND Nurse Practitioner Family
DX: E87.1 Hypo-osmolality and hyponatremia (principal)

== ENCOUNTER → 2024-12-26 | Outpatient (CLI) | payer MEDICARE | LOC: LAB 14:50 | PROVIDERS: ATTEND Nurse Practitioner Family | DX: R30.0 Dysuria (principal) ==

== ENCOUNTER → 2025-02-03 | Outpatient (CLI) | payer MEDICARE ==
[2025-02-03 17:23] LABS: BASO # 0.0 10*3/uL (0.0-0.1); BASO % 0.2 % (0.0-1.0); EOS # 0.0 10*3/uL (0.0-0.4); EOS % 0.9 % (1.0-4.0); MEAN CELL VOLUME 100.6 fl (80.0-94.0); MEAN CORPUSCULAR HGB 33.2 pg (27.0-31.0); MEAN PLATELET VOLUME 10.0 fl (9.6-12.3); MONO # 0.1 10*3/uL (0.1-1.0); MONO % 2.9 % (3.0-9.0); NEUT # 3.3 10*3/uL (2.3-7.9); NEUT % 74.3 % (47.0-73.0); NUCLEATED RED BLOOD CELL 0.0 % (0.0-0.0); NUCLEATED RED BLOOD CELL 0.0 10*3/uL (0.0-0.0); PLATELET COUNT AUTOMATED 70 10*3/uL (130-400); RED CELL DISTRI WIDTH 16.1 % (0-14.5)
[2025-02-03 17:45] LABS: BUN 14 mg/dl (9-23); SGPT/ALT 31 U/L (5-49)
== END | disposition home or self-care (01) ==
LOC: LAB 17:02
PROVIDERS: ATTEND Nurse Practitioner Family
DX: I10 Essential (primary) hypertension (principal); E11.65 Type 2 diabetes mellitus with hyperglycemia; B37.0 Candidal stomatitis; R60.9 Edema, unspecified; Z79.4 Long term (current) use of insulin; Z90.89 Acquired absence of other organs

== ENCOUNTER → 2025-02-06 | Outpatient (CLI) | payer MEDICARE ==
[2025-02-06 18:04] LABS: BILIRUBIN 1+ (Negative); BLOOD 2+ (Negative); CLARITY Turbid (Clear); COLOR Dark Yellow (Yellow); KETONE 1+ (Negative); LEUKO ESTERASE 2+ (Negative); NITRITE Negative (Negative); PH 5.5 (4.5-8.0); SPECIFIC GRAVITY >= 1.030 (1.001-1.030); UROBILINOGEN 1.0 E.U./dl (0.0-1.0)
[2025-02-06 18:26] LABS: BACTERIA 4+; WBC TNTC wbc/hpf (0-5)
== END | disposition home or self-care (01) ==
LOC: LAB 15:27
PROVIDERS: ATTEND Nurse Practitioner Family
DX: R30.0 Dysuria (principal)

== ENCOUNTER 2025-03-18 10:37 | Emergency (ER) | payer MEDICARE ==
[~2025-03-18] VITALS: Wt 89.4 kg
== END 2025-03-18 13:29 | disposition home or self-care (01) ==
LOC: ED 10:37
DX: S20.212A Contusion of left front wall of thorax, initial encounter (principal); N28.1 Cyst of kidney, acquired; I10 Essential (primary) hypertension; F41.9 Anxiety disorder, unspecified; F32.A Depression, unspecified; E11.9 Type 2 diabetes mellitus without complications; K21.9 Gastro-esophageal reflux disease without esophagitis; E78.00 Pure hypercholesterolemia, unspecified; Z88.1 Allergy status to other antibiotic agents; Z88.0 Allergy status to penicillin; Z98.890 Other specified postprocedural states; W19.XXXA Unspecified fall, initial encounter; Y93.89 Activity, other specified; Y92.89 Other specified places as the place of occurrence of the external cause; Y99.8 Other external cause status